=== PATIENT | female | born 1970 ===

== ENCOUNTER → 2016-09-05 | Outpatient (CLI) | payer BC ==
[~2016-09-05] MED LIST: AMOX875T2 PO; BUPR150T6 PO; CEPH500C PO; EPIN0.3P2 IM; MNTL10T PO; MULT-954 PO; OMEG1CAP14 PO
[2016-09-05 19:28] VITALS: BP 121/83
--- NOTE | 2016-09-05 19:28 | Urgent Care T Sheet Gen (E) ---
Intake General Temperature (Fahrenheit): 98.2 Pulse: 109 Blood Pressure Systolic: 121 Blood Pressure Diastolic: 83 Respirations: 20 SPO2: 97 Chief Complaint: UC Respiratory Complaint Description of Symptoms Complains of cough and congestion x 6 weeks. She has tried numerous OTC thing and no help- blowing her nose and sinus pressure and headaches every day. no rashes, no vomitin no body aches. no high fevers. Source: Patient History of Present Illness Onset & Duration: Weeks (x6) Timing: Still present Severity: Moderate Associated Symptoms: Cough, Nasal congestion, Sinus congestion Recent Trauma: No Allergies: Coded Allergies: doxycycline (Verified Allergy, Unknown, 12/10/15) acetaminophen (Verified Adverse Reaction, Unknown, 12/10/15) Home Meds Active Scripts Epinephrine HCl (Epipen)0.3 Mg/0.3 Ml Pen.injctr0.3 Mg IM ONCE #1 PEN Ref 0 Prov:GORDY GO DO 12/10/15 Cephalexin 500 Mg [id number] Mg PO BID Infection #20 CAP Ref 0 Prov:GORDY GO DO 12/10/15 Reported Medications Multivitamin (Multi Vitamin Daily)1 Each Tablet1 Each PO DAILY 12/10/15 Powderly-3 Fatty Acids/Fish Oil (Fish Oil 1,200 mg Softgel)1 Each Capsule1 Each PO DAILY 12/10/15 Montelukast Sodium 10 Mg Wuavvi12 Mg PO DAILY 12/10/15 Bupropion (Bupropion XL)150 Mg Tab.er.[id number] Mg PO DAILY 12/10/15 Respiratory Constitutional Symptoms: No Fever EENTM: Nose Congestion Throat pain Respiratory: Cough Cardiovascular: No symptoms reported Gastrointestinal/Abdominal: No symptoms reported Genitourinary: No symptoms reported All Other Systems Reviewed Remaining Systems: All other systems reviewed with negative findings Past Czjptrj-Nvafvq-Ryozlq Hx Patient's Social History Alcohol Use: Denies Use Recreational Drug Use: Denies Use Smoking Status: Never smoker Recent foreign travel: No Surgeries/Hospitalizations Hospitalization/Surgery Hx: ACL REPAIR L BREAST BIOPSEY Respiratory Respiratory History: None Cardiovascular Cardiovascular History: None Gastrointestinal GI/Endocrine History: None Diabetes Diabetes: No HEENT Impaired Vision: None Hearing Impaired: None Integumentary Integumentary History: Other, see comments Comment: WASP STING Psychosocial Behavior Disorders: None Physical Exam Physical Exam General Appearance: WD/WN No apparent distress Eyes, Ears, Nose, Throat Ex: PERRL/EOMI TM abnormal (R) (dull) TM abnormal (L ) (dull) Pharyngeal erythema Other (nares are red bilaterally and swollen with exudate) Neck Exam: Full range of motion Supple Normal inspectionNo Lymphadenopathy Respiratory Exam: Lungs clear Normal breath sounds No respiratory distress No accessory muscles usedNo Accessory muscle use, No Wheezes Cardiovascular Exam: Regular rate, rhythm Skin Exam: Normal color Warm/dry/intact No rashes Neurologic/Psychiatric Exam: Oriented times 4 CN's II-X nml Departure Urgent Care Impression Chief Complaint: UC Respiratory Complaint Impression: Primary Impression: Sinusitis, acute Qualified Code: J01.10 - Acute frontal sinusitis, unspecified Departure Disposition: HOME OR SELF-CARE Condition: Stable Referrals: DAMEON RAHMAN MD (PCP) Additional Instructions: long talk with her rest hydrate tylenol for pain or fever continue home meds Continue mucinex as before She declines a nasal steroid or oral steroids but will let me know by Thursday if she chooses to try that as well- she has had symptoms for 6 weeks and very congested. f/u PCP as needed She agrees to plan of care Nasal saline rinses prn Scripts Amoxicillin 875 Mg [id number] Mg PO BID #20 TAB Ref 0 Prov:KATE VASQUEZ APRN () 09/05/16 End of report . KATE VASQUEZ APRN () Sep 05, 2016 19:28
== END ==
LOC: MHUC 19:09
PROVIDERS: ATTEND Nurse Practitioner
DX: J01.10 Acute frontal sinusitis, unspecified (principal)
CPT/HCPCS: 99213